=== PATIENT | male | born 1955 | race Caucasian/White ===

== ENCOUNTER 2024-06-18 14:54 | Inpatient (IN) | payer MEDICARE, SELFPAY ==
[2024-06-18] VITALS (10 sets, daily range): BP systolic 153–174; BP diastolic 91–139; BMI 26.9
--- NOTE | 2024-06-18 11:34 | ED.GENMED ---
History of Present Illness
General
Chief Complaint: Breathing Problem
Time Seen by Provider: 06/18/24 11:33
History of Present Illness
History of Present Illness:
68-year-old male presents the emergency for evaluation of throat closing. He states he has had 'a cold' for the past several weeks, completed a course of amoxicillin and steroids with the last dose being 2 days ago. He was started on antibiotics
again yesterday due to continued symptoms. Denies any fevers. No stridor on arrival but he is in significant distress/anxious
Review of Systems
Review of Systems
Allergies reviewed?: Yes
All Other Systems: ROS reviewed and negative except as documented in HPI and ROS
Phy Exam
Physical Exam
Physical Exam:
GEN: Well appearing, NAD, WDWN
HEENT: Oral mucosa moist, no scleral icterus, no stridor, no oropharyngeal edema
Cardiac: Regular rate and rhythm, no murmur
Lung: No respiratory distress, no tachypnea, lungs clear to auscultation bilaterally
MSK: No gross deformity or injuries
Skin: Good color, no pallor or jaundice, no rashes
Neuro: AO x3, moves all extremities freely
Psych: Calm, cooperative
Scores
Heart Failure Risk
Heart Failure Risk Score: Not Applicable
Course
Orders/Labs/Results
Orders:
Orders
06/18/24 11:26
Electrocardiogram (*1) Urgent
Reason for Study: Tachycardia
06/18/24 11:27
EKG- Treatment ONCE
06/18/24 11:33
CT Neck With Iv Contrast Urgent
Comment:
Reason For Exam: hoarseness, throat swelling
Ketorolac [Toradol] 15 mg IV NOW STA
06/18/24 11:38
Complete Blood Count/With Diff Urgent
Comprehensive Metabolic Panel Urgent
06/18/24 13:23
Dexamethasone Sod Phosphate [Decadron] 10 mg IV NOW STA
06/18/24 14:05
ENT CONSULT Urgent
Consulting Provider: Nasim Christy
Was physician already notified: Yes
CXR2 [CR Chest - 2 Views ] Routine
Comment:
Reason For Exam: cough, SOB
06/18/24 14:06
Admit/Transfer Patient As Directed
Co-Sign Provider:
Level of Care: Inpatient admission
Assign to:: IMU- Intermediate Care
Physician / Group: [facility]
Diagnosis: Acute laryngitis
Reason for Hospitalization: IV steroids, ENT consult, monitor airway
Expected length of stay greater than two midnights?: Yes
ELOS- Estimated Length of Stay in days: 2
I certify the patient meets the requirements for IP care: Yes
PRN Pain Medication Management As Directed
May give lesser potent ordered pain med per pt: Yes
preference::
Protocol:: Medication orders for pain may be administered in a
manner that supports deferring to patient preference
when the pt is:
- Requesting an ordered lesser potent pain medication.
Least to most potent pain medications are defined
as: acetaminophen < NSAID < tramadol < opioids
(morphine, oxycodone, hydromorphone).
- Requesting a lesser dose of the same medication IF
ORDERED.
- Requesting a less intrusive route of administration
if both routes are prescribed by the provider (PO <
IV).
06/18/24 14:07
Code Status As Directed
Resuscitation Status: Full Code
06/18/24 14:15
Ampicillin/Sulbactam 3 G [Unasyn] 3 gm 0.9% Sodium Chloride 100 ml [Nss] 100 ml IV NOW
06/18/24 Dinner
IDDSI 6 - Soft & Bite Sized
At Your Request: Full Participation
06/18/24 16:13
0.45% Sodium Chloride 1000 ml [0.45%NaCl] 1,000 ml IV 100 mls/hr
Acetaminophen [Tylenol] 650 mg PO Q6HPRN PRN
Albuterol Nebs [Ventolin Nebules] 2.5 mg INH R Q4HPRN PRN
Calcium 200mg(Ca. Carb. 500mg) [Tums Chewable Tablet] 200 mg PO BIDPRN PRN
06/18/24 16:13
Activity As Directed
Activity Level: Ambulate
06/18/24 18:00
Rivaroxaban [Xarelto] 20 mg PO QPM
Rosuvastatin Calcium [Crestor] 10 mg PO QPM
Sodium Chloride [[place], Saline Mist] 2 sprays NASAL QID
06/18/24 20:00
Guaifenesin [Mucinex] 1,200 mg PO Q12
06/18/24 22:00
Ampicillin/Sulbactam 3 G [Unasyn] 3 gm 0.9% Sodium Chloride 100 ml [Nss] 100 ml IV Q6H
06/19/24 07:00
Dexamethasone Sod Phosphate [Decadron] 4 mg IV Q8H
06/19/24 08:00
Lisinopril [Zestril] 20 mg PO DAILY
Abnormal Lab Results
06/18/24
11:38
WBC 11.9 H 10^3/uL
(4.8-10.8)
Hct 52.1 H %
(39.0-52.0)
MCV 95.1 H fL
(80.0-94.0)
MCH 32.5 H pg
(27.0-31.0)
Abs Immat Gran (auto) 0.6 H 10^3/uL
(0-0.05)
Absolute Neuts (auto) 6.8 H 10^3/uL
(1.4-6.5)
Absolute Monos (auto) 1.0 H 10^3/uL
(0.1-0.6)
Immature Gran % 4.7 H %
(0-0.5)
BUN 28 H mg/dl
(9-20)
Glucose 122 H mg/dl
(70-99)
ALT 80 H U/L
(0-50)
06/18/24 11:38
06/18/24 11:38
Vital Signs
Initial and Last Documented VS:
Initial Vital Signs
Temp Pulse Resp BP Pulse Ox
97.5 F 121 18 174/139 100
06/18/24 11:22 06/18/24 11:22 06/18/24 11:22 06/18/24 11:22 06/18/24 11:22
Last Documented Vital Signs
Temp Pulse Resp BP Pulse Ox
97.5 F 91 17 160/114 95
06/18/24 11:22 06/18/24 16:00 06/18/24 16:00 06/18/24 16:00 06/18/24 16:00
MDM/Problems Addressed
MDM/Problems Addressed:
Significant airway narrowing seen on CT scan. Will admit for IV steroids and ENT evaluation
*Critical Care Note
Total Time (30-74mins, 75-104mins- exclusive of procedures): Not Applicable
ED Attending Note
-
Portions of this chart may have been created with voice recognition software.� Occasional wrong word or��sound alike� substitutions may have occurred due to the inherent limitations of voice recognition software.
Discharge Plan
Departure
Patient Disposition: Admit
Date of Disposition: 06/18/24
Time of Disposition: 13:33
Presentation/result/management discussed w/ accepting MD/DO: Hospitalist
Discharge Problem:
Adult supraglottitis
Interventions
Interventions:
*Risk Screen - Suicide Last Done: 06/18/24 11:22
*General Assessment Last Done: 06/18/24 11:22
*Neglect/Abuse Screening Last Done: 06/18/24 11:22
ED- Fall Risk Assessment Last Done: 06/18/24 11:35
*ED COVID-19 Vaccine History Last Done: 06/18/24 11:33
ED- Cardiac Assessment Last Done: 06/18/24 11:35
ED- Pulmonary Assessment Last Done: 06/18/24 11:35
[2024-06-18] MEDS: TORADOL 15 MG IV (11:36)
[2024-06-18 11:56] LABS: % Basophils 0.9 % (0-2); % Eosinophils 1.8 % (0-6); % Immature Granulocytes 4.7 % (0-0.5); % Lymphocytes 26.8 % (20.5-51.1); % Monocytes 8.6 % (1.7-9.3); % Neutrophils 57.2 % (42.2-75.2); Absolute Basophils 0.1 10^3/uL (0-0.2); Absolute Eosinophils 0.2 10^3/uL (0-0.7); Absolute Immature Granulocytes 0.6 10^3/uL (0-0.05); Absolute Lymphocytes 3.2 10^3/uL (1.2-3.4); Absolute Neutrophils 6.8 10^3/uL (1.4-6.5); Hematocrit 52.1 % (39.0-52.0); Hemoglobin 17.8 g/dL (13.0-18.0); Mean Corp Hgb Conc. 34.2 g/dL (33.0-37.0); Mean Corpuscular Hgb 32.5 pg (27.0-31.0); Mean Corpuscular Volume 95.1 fL (80.0-94.0); Mean Platelet Volume 8.4 fL (7.4-10.4); Nucleated Red Blood Cells % 0 % (-); Platelet Count 260 10^3/uL (130-400); Red Blood Cell Count 5.48 10^6/uL (4.70-6.10); Red Cell Dist. Width 12.3 % (11.5-14.5); White Blood Cell Count 11.9 10^3/uL (4.8-10.8)
[2024-06-18 12:12] LABS: ALT (SGPT) 80 U/L (0-50); AST (SGOT) 50 U/L (17-59); Albumin 4.6 g/dl (3.5-5.0); Alkaline Phosphatase 93 U/L (38-126); Blood Urea Nitrogen 28 mg/dl (9-20); Carbon Dioxide 30 mmol/L (22-30); Chloride 100 mmol/L (98-107); Estimated Creatinine Clearance 62 ml/min; Glucose 122 mg/dl (70-99); Potassium 4.7 mmol/L (3.5-5.1); Sodium 139 mmol/L (135-145); Total Bilirubin 1.1 mg/dl (0.2-1.3); Total Protein 7.4 g/dl (6.3-8.2); eGFR > 60.00
[2024-06-18] MEDS: DECADRON 10 MG IV (13:30)
--- NOTE | 2024-06-18 14:11 | HPS.HSE ---
Family Physician
-
Family Physician: Ellie Tong
Chief Complaint
-
Hoarseness, shortness of breath
History of Present Illness
68-year-old male started developing upper respiratory symptoms of cough, congestion, malaise 2 weeks ago. Denies fever, chills, or sore throat. Has been around other family members with similar symptoms. Treated with a course of oral antibiotics
2 weeks ago with no improvement. Completed a course of azithromycin and Medrol Dosepak yesterday with no improvement. This morning felt like his throat is closing and felt more short of breath and came into the emergency room.
Denies smoking history.
Medical History
Past Medical History
Past Medical History: Reports Other
Additional Past Medical History:
Left lower extremity DVT
Hyperlipidemia
Essential hypertension
Past Surgical History: Reports None
Social History
Tobacco: Non-smoker
Alcohol: Occasional
Drug: None
Personal:
Living: With Family
Family History
Family History: Not pertinent
Allergies / Home Medications
Allergies reflects when Allergies were last updated in [facility].
Home Medications with original date entered in [facility]
Allergy/Medication List:
Allergies
Allergy/AdvReac Type Severity Reaction Status Date / Time
No Known Allergies Allergy Verified 06/18/24 11:32
Home Medications
calcium carbonate (Tums) 200 mg PO BIDPRN PRN GERD 06/18/24
lisinopril 20 mg tablet 20 mg PO DAILY 06/18/24
rivaroxaban 20 mg tablet (Xarelto) 20 mg PO QPM 06/18/24
rosuvastatin 10 mg tablet (Crestor) 10 mg PO QPM 06/18/24
Review of Systems
-
History Source: Patient
A 12 point ROS was completed and negative except as noted: Yes
Respiratory: Reports Cough and Trouble Breathing
Physical Exam
Vital Signs
Vital Signs
Temp Pulse Resp BP Pulse Ox
97.5 F 92 14 153/103 95
06/18/24 11:22 06/18/24 13:30 06/18/24 13:30 06/18/24 13:00 06/18/24 13:30
Physical Exam
General: Well Developed, Well Nourished, No Apparent Distress, Comfortable and Other (Hoarse voice)
HEENT: NormoCephalic, Anicteric and Moist mucous membranes
Respiratory: Clear
Cardiac: S1/S2, Regular Rhythm and Tachycardia
GI: Soft, Non Tender and Non Distended
Genito-urinary: Deferred by me
Musculoskeletal: No Clubbing, No Cyanosis and No Edema
Skin: Warm and Dry
Neuro: AO x 3
Hematologic/Lymphatic: No Lymphadenopathy
Psych: Calm
Laboratory Results
-
06/18/24 11:38
06/18/24 11:38
Laboratory Results
Total Bilirubin 1.1 mg/dl (0.2-1.3) 06/18/24 11:38
AST 50 U/L (17-59) 06/18/24 11:38
ALT 80 U/L (0-50) H 06/18/24 11:38
Alkaline Phosphatase 93 U/L (38-126) 06/18/24 11:38
Impression/Plan
-
Acute laryngitis/tracheobronchitis/sinusitis -bedside laryngoscopy performed by ENT, inflammation noted. Admit to IMU for close monitoring of her airway. Start systemic steroids, inhalers, antibiotics. Discussed with Dr. Christy.
CT shows prominent soft tissue density involving the glottis and supraglottic region. 75% opacification of the right maxillary sinus.
Check PA and lateral chest x-ray.
Hyperlipidemia -continue rosuvastatin.
History of DVT -continue rivaroxaban.
Essential hypertension -continue lisinopril.
Full code
--- NOTE | 2024-06-18 14:31 | W.CON.OTO ---
Otolaryngology Consult
Chief Complaint
shortness of breath, congestion, hoarseness,
History of Present Illness
The patient is a 68-year-old male who complains of an upper respiratory infection for the last 2 weeks. He has been around some sick family members. 2 weeks ago he began to develop congestion, yellow mucus from his nose, postnasal drip, coughing.
It progressed over the first week. He was seen by his primary care physician and treated with a Z-Adonis and Medrol dosepak. He completed the Z-Adonis yesterday. This morning he woke up and felt like his throat was closing. He went in the shower but
it did not help. The patient does have a sore throat and has been coughing up some yellow mucus. In addition he does have some hoarseness. He came to the emergency room and he was treated with steroids. Currently he feels stable and improved.
He currently denies any shortness of breath. He is still hoarse and has significant nasal congestion and a sore throat.
Medical History
Past Medical History: HTN, Hypercholesterolemia and Other (Lower extremity DVT)
Past Surgical History: None
Patient Allergies:
Allergies
Allergy/AdvReac Type Severity Reaction Status Date / Time
No Known Allergies Allergy Verified 06/18/24 11:32
Home Medications / Current Medications:
�Medication �Instructions �Recorded
calcium carbonate (Tums) 200 mg PO BIDPRN PRN GERD 06/18/24
lisinopril 20 mg tablet 20 mg PO DAILY 06/18/24
rivaroxaban 20 mg tablet (Xarelto) 20 mg PO QPM 06/18/24
rosuvastatin 10 mg tablet (Crestor) 10 mg PO QPM 06/18/24
Physical Exam
Vitals / Labs:
Vital Signs
Temp 97.5 F 06/18/24 11:22
Temp route: Oral 06/18/24 11:22
Pulse 92 06/18/24 13:30
Resp Rate 14 06/18/24 13:30
Blood pressure 153/103 06/18/24 13:00
MAP (cuff-Vamsi Monitor) 119 06/18/24 13:00
SaO2 95 06/18/24 13:30
Oxygen Mode of Delivery Room air 06/18/24 11:35
Acceptable pain level during hospitalization? 0 06/18/24 11:22
Actual Weight 92.5 kg 06/18/24 11:33
Body Mass Index (BMI) 26.9 06/18/24 11:33
Lab Results
06/18/24 11:38
06/18/24 11:38
Exam:
Awake, alert, oriented, in no acute distress.
No stridor noted, saturating 95% on room air.
Head normocephalic and atraumatic.
Ears clear bilaterally nasal cavity with mild mucosal erythema and edema, otherwise clear.
Oral cavity and oropharynx with mild mucosal erythema, no edema present, no exudate noted.
Tongue within normal limits, floor of mouth within normal limits.
Neck with some mild jugulodigastric lymphadenopathy present bilaterally, nontender.
A flexible fiberoptic laryngoscopy was performed at the bedside.
The right nasal cavity was easily scoped.
There was no evidence of purulence within the nasal cavity or nasopharynx.
The base of tongue, vallecula, epiglottis, aryepiglottic folds, and arytenoids were clear bilaterally.
No significant edema present. No mass or neoplasm noted.
There was mild edema of the true vocal folds bilaterally.
The airway was widely patent and the vocal folds were mobile bilaterally.
The subglottis appeared to be clear.
Assessment / Plan
A/P- 68-year-old male with upper respiratory infection acute laryngitis.
-Patient's symptoms likely started as a viral upper respiratory infection.
-Failed treatment with a Z-Adonis.
-Had increased pain and some shortness of breath at home today.
-On fiberoptic exam there is no evidence of significant airway edema or obstruction.
-However the patient does have some right sided maxillary sinusitis noted on the CT scan.
-At this point I feel like the patient does have acute sinusitis with resulting laryngitis.
-Would recommend treatment with Unasyn while he is an inpatient.
-Given Decadron 10 mg in the ER.
-Would continue Decadron 8 mg IV every 12 for now.
-Hopefully the patient will improve over the next 24 hours and can then be discharged home on oral medications.
-Recommend oral Mucinex and nasal saline spray as well.
-I will check on his progress tomorrow.
Thank you for allowing me to participate in the care of this patient.
Data Reviewed
CT Scan: Image Personally Visualized and interpreted, Discussed with Physician and Other (CT scan of the neck reviewed. The epiglottis is sharp without any edema. There is some mild laryngeal edema noted. No evidence of significant abscess within
the upper aerodigestive tract.)
Lab Data: Labs Reviewed by me
[2024-06-18] MEDS: UNASYN IV ×2 (15:11→21:58)
[2024-06-18] MEDS: 0.45%NACL 1000 IV (17:43)
--- NOTE | 2024-06-18 18:47 | PTCARENOTE ---
Pt to ##49 walked into room used BR had BM. Conversant.
[2024-06-18] MEDS: ZESTRIL 20 MG PO (20:09)
[2024-06-18] MEDS: CRESTOR 10 MG PO (20:09)
[2024-06-18] MEDS: XARELTO 20 MG PO (20:09)
[2024-06-18] MEDS: OCEAN, SALINE MIST NASAL (20:09)
[2024-06-18] MEDS: MUCINEX 1200 MG PO (20:09)
[2024-06-18] MEDS: OCEAN, SALINE MIST 2 SPRAYS NASAL (21:58)
[2024-06-19] VITALS: BP 155/85
[2024-06-19 02:00] VITALS: BP 132/83
[2024-06-19 04:00] VITALS: BP 142/101
[2024-06-19] MEDS: UNASYN IV ×2 (04:03→09:41)
--- NOTE | 2024-06-19 04:46 | PTCARENOTE ---
No acute events overnight. Patient without complaints of SOB or throat swelling. IV abx infused with no s/s or reaction. Remained on room air.
[2024-06-19 06:00] VITALS: BP 141/83
[2024-06-19] MEDS: DECADRON 4 MG IV (06:04)
--- NOTE | 2024-06-19 07:37 | W.PN.HOSP.TC ---
Today's Communication/Plan
-
Discharge
Assessment / Plan
Assessment / Plan
Gen-AAOx3, NAD
HEENT-NC, AT, anicteric, clear oral mm
Neck-supple
CV-reg, no M, +S1/S2
Lungs-clear B/L
Abd-soft, NT, ND
Ext-no edema
Musculoskeletal-no cyanosis, clubbing
Skin-warm and dry
Neuro-grossly non-focal
Psych-calm, cooperative
Acute right maxillary sinusitis -CT scan results noted. Clinically improving on Unasyn. Steroids. Anticipate discharge on Augmentin and steroids today.
Acute laryngitis -improving with supportive care. Patient states he never truly had a sore throat dressed dryness in the throat from coughing.
Hyperlipidemia -continue rosuvastatin.
History of DVT -continue rivaroxaban.
Essential hypertension -continue lisinopril.
Full code
Dispo -medically stable for discharge today. Outpatient follow-up with PCP and ENT. Discussed with Dr. Christy.
32 minutes spent in discharge process.
Anticipated Discharge: Today
Subjective/Interval History
-
Date of Service: June 19, 2024
Patient seen and examined. Looks and feels much better, back to his baseline. No complaints.
Objective Data
-
Vital Signs:
Vital Signs
Temp Pulse Resp BP Pulse Ox
97.9 F 57 12 141/83 93
06/19/24 03:00 06/19/24 06:00 06/19/24 06:00 06/19/24 06:00 06/19/24 06:00
I&O
06/18/24 06/19/24 06/20/24
06:59 06:59 06:59
Intake Total 1240 / 1240
Balance 1240 / 1240
Review of Systems
-
History Source: Patient
All other systems: Reviewed and negative
--- NOTE | 2024-06-19 07:45 | W.DS.TRANS ---
DC Summary - Director Payer
-
Discharge Instructions:
Discharge Diagnosis/Procedures Acute sinusitis, acute laryngitis
Diet Low Fat,Low Cholesterol
Activity As tolerated
Driving Restrictions As prior to admission
Bathing Restrictions None
Instructions:
Stand-Alone Forms:
Changes to Home Medications: No
Discharge Medications:
DC Medications w/original date entered in [facility]
calcium carbonate (Tums) 200 mg PO BIDPRN PRN GERD 06/18/24
lisinopril 20 mg tablet 20 mg PO DAILY 06/18/24
rivaroxaban 20 mg tablet (Xarelto) 20 mg PO QPM 06/18/24
rosuvastatin 10 mg tablet (Crestor) 10 mg PO QPM 06/18/24
amoxicillin 875 mg-potassium clavulanate 125 mg tablet 1 tab PO BID #20 tabs 06/19/24
guaifenesin 600 mg tablet, extended release 12 hr 1,200 mg (2 x 600 mg) PO Q12 #20 tabs 06/19/24
prednisone 10 mg tablet 10 mg PO DIRECTED #27 tabs 06/19/24
sodium chloride 0.65 % nasal spray aerosol (Saline Nasal) 2 sprays intranasal QID #0 mL 06/19/24
Home Medication Changes
Pending Results: No
[2024-06-19] MEDS: MUCINEX 1200 MG PO (07:47)
[2024-06-19] MEDS: OCEAN, SALINE MIST 2 SPRAYS NASAL (07:47)
[2024-06-19 08:00] VITALS: BP 150/98
--- NOTE | 2024-06-19 09:18 | PTCARENOTE ---
Pt AAOx3 awaiting ENT before DC.
[2024-06-19] MEDS: FLUAD (65 yr+) 2024-2025 FORMULA 0.5 ML IM (09:42)
[2024-06-19 10:00] VITALS: BP 157/93
--- NOTE | 2024-06-19 10:39 | PTCARENOTE ---
Pt given Flu shot, discharge instructions no questions awaiting wc.
--- NOTE | 2024-06-19 10:41 | PTCARENOTE ---
Pt stated that ENT could not see him today, pt is to see him within [address] Mcnair aware
== END 2024-06-19 10:51 | disposition home or self-care (01) | DRG 153 ==
LOC: IMU 14:54
PROVIDERS: Physician Assistant; ADMITTING PHYSICIAN Hospitalist; CONSULT PHYSICIAN Otolaryngology; EMERGENCY PHYSICIAN Emergency Medicine; FAMILY PHYSICIAN Internal Medicine
PROC: 0CJS8ZZ Inspection of Larynx, Via Natural or Artificial Opening Endoscopic (ICD-10-PCS; 2024-06-18)
PROC: 3E02340 Introduction of Influenza Vaccine into Muscle, Percutaneous Approach (ICD-10-PCS; 2024-06-19)
DX: J01.00 Acute maxillary sinusitis, unspecified (principal); R49.0 Dysphonia; J04.0 Acute laryngitis; J04.30 Supraglottitis, unspecified, without obstruction; I10 Essential (primary) hypertension; E78.00 Pure hypercholesterolemia, unspecified; R53.81 Other malaise; Z86.718 Personal history of other venous thrombosis and embolism; Z79.01 Long term (current) use of anticoagulants; Z23 Encounter for immunization
CPT/HCPCS: 70491; 71046; 80053; 85025; 90662; 93005; 96361; 96375; 99285; G0008; Q9967